=== PATIENT | female | born 1975 | race Caucasian/White ===

== ENCOUNTER 2019-11-03 11:43 | Emergency (ER) | payer MEDICAID ==
[~2019-11-03] VITALS: Ht 149.9 cm; Wt 57.6 kg
[2019-11-03] MEDS ORDERED: NEURONTIN100 MG PO (12:09)
[2019-11-03] MEDS ORDERED: NAPROSYN500 MG PO (12:09)
[2019-11-03] MEDS ORDERED: ABILIFY2 MG (12:35)
[2019-11-03] MEDS ORDERED: XANAX0.25 MG PO (12:36)
[2019-11-03] MEDS ORDERED: CYMBALTA20 MG (12:37)
== END 2019-11-03 12:33 | disposition home or self-care (01) ==
LOC: ED 11:43
DX: G57.61 Lesion of plantar nerve, right lower limb (principal); F32.9 Major depressive disorder, single episode, unspecified; F41.9 Anxiety disorder, unspecified; F17.200 Nicotine dependence, unspecified, uncomplicated; Z88.5 Allergy status to narcotic agent; Z79.899 Other long term (current) drug therapy
CPT/HCPCS: 99283

== ENCOUNTER 2019-11-23 08:42 | Emergency (ER) | payer MEDICAID ==
[~2019-11-23] VITALS: Ht 149.9 cm; Wt 57.6 kg
[~2019-11-23 08:42] MED LIST: ABILIFY2 MG; CYMBALTA20 MG; NAPROSYN500 MG PO; NEURONTIN100 MG PO; XANAX0.25 MG PO
--- OUTSIDE RECORDS SUMMARY | 2019-11-23 08:46 | XMS ---
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 E.Jordon VISIT COUNT (12 MO.) [facility] [address] TOTAL 10 NOTE: Visits indicate total known visits. 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 TYPE: Emergency COMPLAINT: - Cough, runny nose DIAGNOSES: - Cough - Major depressive disorder, single episode, unspecified - Acute upper respiratory infection, unspecified - Cough, runny nose [facility] COMPLAINT: - Shoulder Pain DIAGNOSES: - Shoulder Pain - Spondylosis without myelopathy or radiculopathy, cervical reg 05[facility]11/2019 21[facility] COMPLAINT: - left shoulder pain DIAGNOSES: - left shoulder pain - Shoulder Pain - Strain of muscle, fascia and tendon at neck level, initial en 04/30/2019 09:40 [facility] COMPLAINT: - Vomiting, difficulty breathing DIAGNOSES: - Vomiting, difficulty breathing - Shortness of Breath - Cough 04/26/2019 11:52 [facility] TYPE: Emergency COMPLAINT: - Anxiety DIAGNOSES: - Panic disorder [episodic paroxysmal anxiety] - Anxiety 04/10/2019 11:14 [facility] [place] TYPE: Emergency COMPLAINT: - Exposure to STD DIAGNOSES: - Exposure to STD - Contact with and (suspected) exposure to infections with a pr - Elevated urine levels of drugs, medicaments and biological carr 03/21/2019 13:49 [facility] TYPE: Emergency COMPLAINT: - Shoulder Pain DIAGNOSES: - Shoulder Pain - Zoster without complications 01/14/2019 11:44 [facility] Jesusita [facility] TYPE: Emergency COMPLAINT: - Neck Pain DIAGNOSES: - Neck Pain - Occipital neuralgia INPATIENT VISIT TRACKING (12 MO.) No inpatient visits to display in this time frame [email or web address]
[2019-11-23] MEDS ORDERED: TRAMADOL HCL50 MG PO (09:29)
== END 2019-11-23 09:59 | disposition home or self-care (01) ==
LOC: ED 08:42
DX: M79.672 Pain in left foot (principal); M79.671 Pain in right foot; F32.9 Major depressive disorder, single episode, unspecified; F41.9 Anxiety disorder, unspecified; F17.200 Nicotine dependence, unspecified, uncomplicated; Z88.5 Allergy status to narcotic agent; Z79.899 Other long term (current) drug therapy
CPT/HCPCS: 99283

== ENCOUNTER 2020-02-10 06:57 | Emergency (ER) | payer OTHER ==
[~2020-02-10] VITALS: Ht 149.9 cm; Wt 57.7 kg
[~2020-02-10 06:57] MED LIST changes: +TRAMADOL HCL50 MG PO
[2020-02-10] MEDS ORDERED: ATORVASTATIN CA20 MG PO (07:16)
[2020-02-10] MEDS ORDERED: HYDROXYZINE HCL50 MG PO (07:16)
[2020-02-10] MEDS ORDERED: ONDANSETRON ODT8 MG PO (09:51)
[2020-02-10] MEDS ORDERED: NORCO 7.5-3251 EACH PO (09:51)
[2020-02-10] MEDS ORDERED: LIDODERM1 EACH TOP (09:55)
== END 2020-02-10 10:05 | disposition home or self-care (01) ==
LOC: ED 06:57
DX: R10.9 Unspecified abdominal pain (principal); F32.9 Major depressive disorder, single episode, unspecified; F41.9 Anxiety disorder, unspecified; F17.200 Nicotine dependence, unspecified, uncomplicated; Z88.2 Allergy status to sulfonamides; Z88.5 Allergy status to narcotic agent; Z79.899 Other long term (current) drug therapy
CPT/HCPCS: 74177; 80053; 81001; 85025; 96374; 96375; 99284-25; A9270; J1885; J2405; J7030; Q9967

== ENCOUNTER 2021-06-26 10:23 | Emergency (ER) | payer OTHER ==
[~2021-06-26] VITALS: Ht 149.9 cm; Wt 70.8 kg
[~2021-06-26 10:23] MED LIST changes: +ATORVASTATIN CA20 MG PO; +HYDROXYZINE HCL50 MG PO; +LIDODERM1 EACH TOP; +NORCO 7.5-3251 EACH PO; +ONDANSETRON ODT8 MG PO
[2021-06-26] MEDS ORDERED: PROPRANOLOL HCL20 MG PO (13:59)
[2021-06-26] MEDS ORDERED: FREESTYLE LITE1 EAC1 MISC (13:59)
[2021-06-26] MEDS ORDERED: TRAZODONE HCL100 MG PO (14:00)
[2021-06-26] MEDS ORDERED: BUPROPION XL300 MG PO (14:00)
[2021-06-26] MEDS ORDERED: PRAZOSIN HCL5 MG PO (14:00)
[2021-06-26] MEDS ORDERED: DESVENLAFAXINE50 M3 PO (14:00)
[2021-06-26] MEDS ORDERED: CYCLOBENZAPRINE10 MG PO (15:45)
== END 2021-06-26 16:12 | disposition home or self-care (01) ==
LOC: ED 10:23
DX: M54.32 Sciatica, left side (principal); F17.200 Nicotine dependence, unspecified, uncomplicated; Z88.2 Allergy status to sulfonamides; Z88.5 Allergy status to narcotic agent; Z79.899 Other long term (current) drug therapy
CPT/HCPCS: 72110; 99283-25; A9270; J8540

== ENCOUNTER 2022-08-05 12:42 | Emergency (ER) | payer OTHER ==
[~2022-08-05] VITALS: Ht 149.9 cm; Wt 70.8 kg
[~2022-08-05 12:42] MED LIST changes: +BUPROPION XL300 MG PO; +CYCLOBENZAPRINE10 MG PO; +DESVENLAFAXINE50 M3 PO; +FREESTYLE LITE1 EAC1 MISC; +PRAZOSIN HCL5 MG PO; +PROPRANOLOL HCL20 MG PO; +TRAZODONE HCL100 MG PO
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
[2022-08-05] MEDS ORDERED: PERCOCET 5-3251 EACH PO (14:20)
[2022-08-05] MEDS ORDERED: FLOMAX0.4 MG PO (14:20)
[2022-08-05 14:30] VITALS: BP 109/74
== END 2022-08-05 14:30 | disposition home or self-care (01) ==
LOC: ED 12:42
DX: N20.0 Calculus of kidney (principal); F17.200 Nicotine dependence, unspecified, uncomplicated; Z88.2 Allergy status to sulfonamides; Z88.5 Allergy status to narcotic agent; Z79.899 Other long term (current) drug therapy
CPT/HCPCS: 36415; 74176; 80053; 81003; 84703; 85025; J1885; J2405; J3010; J7121

== ENCOUNTER 2022-12-29 09:29 | Emergency (ER) | payer OTHER ==
[~2022-12-29] VITALS: Ht 149.9 cm; Wt 73.7 kg
[~2022-12-29 09:29] MED LIST changes: +FLOMAX0.4 MG PO; +PERCOCET 5-3251 EACH PO
--- OUTSIDE RECORDS SUMMARY | 2022-12-29 09:33 | XMS ---
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 Care History Medical/Surgical 12/02/2019 [facility] - W CONTACTED PATIENT- PATIENT ACCEPTED HELP WITH FINDING A PCP-PATIENT NEEDS A REFERRAL TO DR ROSARIO AND JOY\T\#39;T SEE PHYSICIAN UNTIL REFERRAL IS MADE. - CHW CONTACTED [facility]-SET UP AN ESTABLISHING CARE APT WITH DAVID SKINNER 12/03/2019 @ 9:30AM. - PATIENT APPROVED OF THE APT AND HAS TRANSPORTATION TO AND FROM APT. Niraj.DAngelina VISIT COUNT (12 MO.) 2 [facility] TOTAL 2 NOTE: Visits indicate total known visits. ED/UCC VISIT TRACKING (12 MO.) 12/29/2022 09:30 [facility] [place] TYPE: Emergency COMPLAINT: - COVID+, FLU SYMPTOMS 08/05/2022 12:[address] [facility] [place] TYPE: Emergency COMPLAINT: - L FLANK PAIN DIAGNOSES: - Allergy status to narcotic agent - Allergy status to sulfonamides - Calculus of kidney - Nicotine dependence, unspecified, uncomplicated - Other care home (current) drug therapy - Unspecified abdominal pain INPATIENT VISIT TRACKING (12 MO.) No inpatient visits to display in this time frame [email or web address]
[2022-12-29] MEDS ORDERED: GABAPENTIN100 MG PO (10:20)
[2022-12-29] MEDS ORDERED: DESVENLAFAXINE100 M3 PO (10:20)
[2022-12-29] MEDS ORDERED: RA COUGH-COLD237 ML PO (10:46)
[2022-12-29] MEDS ORDERED: DEXAMETHASONE6 MG PO (10:46)
[2022-12-29 10:56] VITALS: BP 120/74
== END 2022-12-29 11:12 | disposition home or self-care (01) ==
LOC: ED 09:29
DX: U07.1 COVID-19 (principal); F17.200 Nicotine dependence, unspecified, uncomplicated; Z88.2 Allergy status to sulfonamides; Z88.5 Allergy status to narcotic agent; Z79.899 Other long term (current) drug therapy
CPT/HCPCS: 99283

== ENCOUNTER 2023-05-03 11:58 | Emergency (ER) | payer OTHER ==
[~2023-05-03] VITALS: Ht 149.9 cm; Wt 77.2 kg
[~2023-05-03 11:58] MED LIST changes: +DESVENLAFAXINE100 M3 PO; +DEXAMETHASONE6 MG PO; +GABAPENTIN100 MG PO; +RA COUGH-COLD237 ML PO
[2023-05-03] MEDS ORDERED: PREDNISONE20 MG PO (14:41)
[2023-05-03] MEDS ORDERED: predniSONE 20 MG TAB PO ONE (14:45)
== END 2023-05-03 15:02 | disposition home or self-care (01) ==
LOC: ED 11:58
DX: M54.41 Lumbago with sciatica, right side (principal); F32.A Depression, unspecified; F41.9 Anxiety disorder, unspecified; F17.200 Nicotine dependence, unspecified, uncomplicated; Z88.2 Allergy status to sulfonamides; Z88.5 Allergy status to narcotic agent; Z79.899 Other long term (current) drug therapy
CPT/HCPCS: 99283; J7512

== ENCOUNTER 2023-10-18 07:13 | Day surgery (SDC) | payer OTHER ==
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
[~2023-10-18] VITALS: Ht 149.9 cm; Wt 68.2 kg
[~2023-10-18 07:13] MED LIST changes: +CEFAZOLIN SODIUM 2 GM/20 ML SYR IV SCH; +IBLOOD GLUCOSE TEST STRIP 1 EA TEST VI PRN; +LACTATED RINGER'S 1,000 ML IV SCH; +LIDOCAINE HCL 1% 5 ML SDV INJ ONE; +PREDNISONE20 MG PO
[2023-10-18 07:29] VITALS: BP 126/78
[2023-10-18] MEDS ORDERED: DEXAMETHASONE SOD PHOS 4 MG/ML VIAL ONE (07:40)
--- NOTE | 2023-10-18 07:48 | NUR ---
LE 0720: PT ARRIVES TO [place], UNACCOMPANIED. SHE IS GIVEN WIPE DOWN INSTRUCTIONS AND TO OPEN HER CURTAIN WHEN READY. LE 0748: PT IS ORIENTED TO HER CALL LIGHT. SHE IS EDUCATED THAT SHE CAN GET UP TO USE THE RESTROOM IF SHE NEEDS TO, SHE JUST NEEDS TO TAKE HER IV POLE WITH HER. NO QUESTIONS OR CONCERNS FOR TODAY.
[2023-10-18] MEDS ORDERED: LIDOCAINE HCL 0.5% 50 ML SDV ONE (07:52)
[2023-10-18] MEDS ORDERED: ondansetron HCL 4 MG/2 ML VIAL ONE (07:52)
[2023-10-18] MEDS ORDERED: propofoL 200 MG/20 ML VIAL ONE ×2 (07:52→08:33)
[2023-10-18] MEDS ORDERED: KETOROLAC TROMETHAMINE 30 MG/ML VIAL ONE (07:52)
--- NOTE | 2023-10-18 08:13 | NUR ---
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 SHE IS GIVEN [address] TOBIN IN THE ROOM TO HILL.
[2023-10-18] MEDS ORDERED: fentaNYL citrate 50 MCG/ML SDV IV PRN (08:15)
[2023-10-18] MEDS ORDERED: NALOXONE HCL 0.4 MG SYR IV PRN (08:15)
[2023-10-18] MEDS ORDERED: IBLOOD GLUCOSE TEST STRIP 1 EA TEST VI PRN (08:15)
[2023-10-18] MEDS ORDERED: ondansetron HCL 4 MG/2 ML VIAL IV PRN (08:15)
[2023-10-18] MEDS ORDERED: HYDROCODONE/ACETA 5/325 TAB PO PRN (08:15)
[2023-10-18] MEDS ORDERED: HYDROCODON-ACE1 EA10 PO (08:48)
[2023-10-18 09:20] VITALS: BP 112/77
--- NOTE | 2023-10-18 09:21 | NUR ---
10/18/23 0921 Marga Paez PATIENT REPOSITIONS HERSELF ON THE EDGE OF THE BED, WITH HER FEET DEPENDENT. SHE TOLERATES THIS WELL. DISCHARGE INSTRUCTIONS ARE REVIEWED AND SHE VERBALIZES UNDERSTANDING. SHE IS GETTING DRESSED BEHIND THE CURTAIN.
--- NOTE | 2023-10-19 09:03 | OR ---
[facility] [address], [place] [address] Signed DATE OF OPERATION: 10/18/2023 SURGEON: Liliana Gilliland MD PREOPERATIVE DIAGNOSIS: Carpal tunnel syndrome, left. POSTOPERATIVE DIAGNOSIS: Carpal tunnel syndrome, left. PROCEDURE PERFORMED: Left carpal tunnel release. STRUCTURAL ENGINEER: None. ANESTHESIA: Lance block. TOURNIQUET TIME: 15 minutes. BRIEF HISTORY: Jerrica is a 47-year-old female with progressive worsening of pain and numbness in her hand. Nerve conduction studies were consistent with carpal tunnel. Risks, benefits, and alternatives of release were discussed with her and she elected to proceed. DESCRIPTION OF OPERATION: Once consent was obtained, she was taken to the operating room. After adequate anesthesia, she was placed on the day surgery bed with a hand table. The arm was prepped and draped in the standard sterile fashion. A 1 cm incision was made in the distal wrist crease, carried through the skin and subcutaneous tissue. The palmaris longus was identified, retracted, and protected. The transverse carpal ligament was identified and dissected free of overlying soft tissue. It was then released proximally a cm and a half and distally to the distal extent of the ligament. This was palpated using the Lamont and found to be completely released. The canal was then copiously irrigated with normal saline. The skin was closed with 3-0 nylon and injected with 7 mL of 0.25% Marcaine plain. The wound was dressed with bacitracin, Adaptic, 4 x 8s, and gauze. She tolerated the procedure well. All sponge, needle, and instrument counts were correct. Electronically Signed By: LILIANA GILLILAND MD 10/19/23 0903 PATIENT NAME: JERRICA BARLOW OPERATIVE REPORT DATE OF : 71 REPORT #: [id number] PHYSICIAN: LILIANA GILLILAND MD PCP: HECTOR SANTACRUZ REPORT IS CONFIDENTIAL AND NOT TO BE RELEASED WITHOUT AUTHORIZATION [address] [place] [address] Signed Liliana Gilliland MD BA/MODL /[id number] Copies: ~ Electronically Signed By: LILIANA GILLILAND MD 10/19/23 0903 PATIENT NAME: JERRICA BARLOW OPERATIVE REPORT DATE OF : 71 REPORT #: [id number] PHYSICIAN: LILIANA GILLILAND MD PCP: HECTOR SANTACRUZ REPORT IS CONFIDENTIAL AND NOT TO BE RELEASED WITHOUT AUTHORIZATION
== END 2023-10-18 09:24 | disposition home or self-care (01) ==
LOC: DS 07:13
PROVIDERS: ATTEND Specialist
PROC: 01N50ZZ Release Median Nerve, Open Approach (ICD-10-PCS; principal; 2023-10-18 09:35)
DX: G56.02 Carpal tunnel syndrome, left upper limb (principal); J45.909 Unspecified asthma, uncomplicated; J44.9 Chronic obstructive pulmonary disease, unspecified; F32.A Depression, unspecified; K21.9 Gastro-esophageal reflux disease without esophagitis; E78.5 Hyperlipidemia, unspecified; Z79.899 Other long term (current) drug therapy; Z87.891 Personal history of nicotine dependence; Z88.5 Allergy status to narcotic agent; Z88.2 Allergy status to sulfonamides
CPT/HCPCS: J0690; J1100; J1885; J2405; J2704; J7121

== ENCOUNTER 2024-03-11 13:42 | Emergency (ER) | payer OTHER ==
[~2024-03-11] VITALS: Ht 149.9 cm; Wt 69.0 kg
[~2024-03-11 13:42] MED LIST changes: -CEFAZOLIN SODIUM 2 GM/20 ML SYR IV SCH; +HYDROCODON-ACE1 EA10 PO; -IBLOOD GLUCOSE TEST STRIP 1 EA TEST VI PRN; -LACTATED RINGER'S 1,000 ML IV SCH; -LIDOCAINE HCL 1% 5 ML SDV INJ ONE
[2024-03-11] MEDS ORDERED: ZOLPIDEM TARTRAT5 MG PO (14:02)
[2024-03-11 14:37] VITALS: BP 138/91
[2024-03-11] MEDS ORDERED: HYDROCODON-ACE1 EA10 PO (14:38)
== END 2024-03-11 14:45 | disposition home or self-care (01) ==
LOC: ED 13:42
DX: M25.562 Pain in left knee (principal); F17.200 Nicotine dependence, unspecified, uncomplicated; Z88.2 Allergy status to sulfonamides; Z88.5 Allergy status to narcotic agent; Z79.899 Other long term (current) drug therapy
CPT/HCPCS: 73560; 99283

== ENCOUNTER 2024-12-28 10:41 | Emergency (ER) | payer OTHER ==
[~2024-12-28] VITALS: Ht 149.9 cm; Wt 82.0 kg
[~2024-12-28 10:41] MED LIST changes: +ZOLPIDEM TARTRAT5 MG PO
[2024-12-28] MEDS ORDERED: KETOROLAC TROMETHAMINE 30 MG/ML VIAL IM ONE (11:00)
[2024-12-28] MEDS ORDERED: LIDOCAINE HCL 4% 1 EACH PATCH TD ONE (11:00)
[2024-12-28] MEDS ORDERED: PRAZOSIN HCL5 MG PO (11:02)
[2024-12-28 11:57] LABS: BLOOD/HGB, URINE NEGATIVE (Negative); KETONE, URINE NEGATIVE (Negative); LEUK ESTERASE, URINE NEGATIVE (negative); NITRITE, URINE NEGATIVE (negative)
[2024-12-28 12:41] VITALS: BP 124/87
[2024-12-28] MEDS ORDERED: LIDOCAINE PATCH REMOVAL 1 EA TD SCH (21:00)
== END 2024-12-28 12:34 | disposition home or self-care (01) ==
LOC: ED 10:41
PROVIDERS: Emergency Medicine
DX: M54.41 Lumbago with sciatica, right side (principal); F17.200 Nicotine dependence, unspecified, uncomplicated; Z88.2 Allergy status to sulfonamides; Z88.5 Allergy status to narcotic agent; Z79.899 Other long term (current) drug therapy
CPT/HCPCS: 81003; 96372; 99283; A9270; J1885